=== PATIENT | female | born 1945 | race Caucasian/White ===

== ENCOUNTER 2020-04-04 07:44 | Inpatient (IN) | payer MEDICARE, SELFPAY ==
[2020-04-04] VITALS (31 sets, daily range): BP systolic 107–138; BP diastolic 72–88; PULSE 99–109; RESP 10–20; TEMP 36.4–36.9; O2SAT 97–100; BMI 26.5
--- NOTE | ~2020-04-04 | MR_ITS ---
EXAMINATION: MR brain/brain stem wo/w con DATE: 04/05/2020 18:50 INDICATION: Parkinson's disease. Altered mental status. Old infarcts. TECHNIQUE: Magnetic resonance imaging (MRI) of the brain and brainstem was performed without and with 14 mL Multihance intravenous contrast. Sequences included sagittal and axial T1-weighted SE, axial d iffusion-weighted FS SE, axial T2*-weighted GRE, axial T2-weighted FLAIR, and axial T2-weighted FSE. Postcontrast axial and coronal T1-weighted SE was obtained. Apparent diffusion coefficient (ADC) maps were created. COMPARISON: Head CT dated 04/04/2020 and brain MR dated 10/13/2019 FINDINGS: There are no areas of restricted diffusion to suggest acute infarction. No intracranial hemorrhage or abnormal intracranial mass lesion. There are scattered areas of nonspecific increased T2-weighted si gnal intensity in the cerebral white matter, predominantly involving the deep and periventricular whi te matter. There are no intraparenchymal signal abnormalities seen on the other pulse sequences. Symm etric prominence of the sulci and ventricles consistent with moderate age-appropriate diffuse cerebra l volume loss. There are no abnormal extra-axial fluid collections. Flow voids are seen in the cerebr al arteries on the T2-weighted sequences consistent with their expected patency. Changes of bilateral intraocular lens replacement. Visualized orbits and soft tissues are unremarkable. There are no area s of abnormal enhancement on the post contrast images although evaluation on the postcontrast images is limited by moderate amount of motion artifact. IMPRESSION: 1. No acute intracranial process. 2. Chronic age-related findings including moderate diffuse volume loss and moderate periventricular p redominant nonspecific white matter T2 hyperintensity consistent with chronic small vessel ischemic d isease. Reviewed, dictated and finalized at location A. IMPRESSION: 1. No acute intracranial process. 2. Chronic age-related findings including moderate diffuse volume loss and mode rate periventricular predominant nonspecific white matter T2 hyperintensity con sistent with chronic small vessel ischemic disease.
--- NOTE | ~2020-04-04 | XR_ITS ---
XR chest 1V DATE: 04/04/2020 08:33 INDICATION: Fever TECHNIQUE: AP chest on 04/04/2020 at 0830 hours COMPARISON: 11/10/2019 portable AP chest at 1959 hours FINDINGS: Right Port-A-Cath catheter tip overlies the upper right atrium. No evidence of pneumothorax . Normal heart size. No pulmonary infiltrate or consolidation, pleural effusion or pulmonary vascular c ongestion or pneumothorax. Surgical clips, right upper quadrant, consistent with cholecystectomy. Diffuse osteopenia. There is degenerative spurring of the thoracic and lumbar spine. IMPRESSION: No active cardiopulmonary disease Reviewed, dictated and finalized at location A.
--- NOTE | ~2020-04-04 | CT_ITS ---
EXAMINATION: CT brain wo con DATE: 04/04/2020 08:25 INDICATION: Altered mental status. TECHNIQUE: Computed tomography (CT) of the head was performed without intravenous contrast. The mA wa s adjusted according to patient size. Iterative reconstruction technique was employed. The dose-lengt h product was 605.33 mGy-cm. COMPARISON: Head CT 11/06/2019 FINDINGS: There are old infarcts involving the right thalamus and right frontal lobe. There are scatt ered areas of low attenuation in the cerebral white matter. There is no intracranial hemorrhage, acut e infarction, or abnormal intracranial mass lesion. The ventricles are normal in size. There is mild mucosal thickening in the ethmoid sinuses. The mastoid air cells are normal. There are likely changes of ocular lens replacement surgeries. IMPRESSION: 1. Old infarcts involving the right thalamus and right frontal lobe. 2. Stable moderate nonspecific cerebral white matter disease, which likely represents chronic small v essel ischemic disease. Reviewed, dictated and finalized at location A. IMPRESSION: 1. Old infarcts involving the right thalamus and right frontal lobe. 2. Stable moderate nonspecific cerebral white matter disease, which likely repr esents chronic small vessel ischemic disease.
--- NOTE | 2020-04-04 07:56 | ED.AMS ---
HPI - Altered Mental Status General Chief Complaint: Altered Mental Status Stated Complaint: Altered mental status Time Seen by Provider: 04/04/20 07:48 History of Present Illness HPI narrative: BIBEMS from [facility] for fever and AMS. They report that she has had poor appetitie and been more lethargic for at least the past week. Poor Po intake. Related Data Home Medications Medication Instructions Recorded Confirmed carbidopa-levodopa 1 tablet PO TID 10/20/19 04/04/20 divalproex 250 mg PO BID 10/20/19 04/04/20 fludrocortisone 0.1 mg PO EVERY OTHER DAY 10/20/19 04/04/20 megestrol 40 mg PO BID 10/20/19 04/04/20 potassium chloride 20 meq PO BID 10/20/19 04/04/20 Caltrate 600 plus D 1 tablet PO DAILY 11/07/19 04/04/20 Vitamin 1 tablet PO DAILY 11/07/19 04/04/20 allopurinol 300 mg PO BID 11/07/19 04/04/20 aspirin [Adult Low Dose Aspirin] 81 mg PO DAILY 11/07/19 04/04/20 cyanocobalamin (vitamin B-12) 1,000 mcg PO USEASDIRECTD 11/07/19 04/04/20 [Vitamin B-12] docusate sodium [Colace] 100 mg PO QAM PRN 11/07/19 04/04/20 melatonin 5 mg PO HS PRN 11/07/19 04/04/20 cyanocobalamin (vitamin B-12) 500 mcg PO DAILY 04/04/20 04/04/20 furosemide [Lasix] 20 mg PO EVERY OTHER DAY 04/04/20 04/04/20 furosemide [Lasix] 40 mg PO EVERY OTHER DAY 04/04/20 04/04/20 iron ps [id number] acid 1 cap PO BID 04/04/20 04/04/20 [Poly-Iron 150 Forte] loperamide [Imodium A-D] 2 mg PO Q4H PRN 04/04/20 04/04/20 ondansetron HCl [Zofran] 4 mg PO Q6H PRN 04/04/20 04/04/20 sertraline [Zoloft] 25 mg PO BID 04/04/20 04/04/20 spironolactone 25 mg PO DAILY 04/04/20 04/04/20 Allergies Allergy/AdvReac Type Severity Reaction Status Date / Time bacitracin Allergy Unknown Unknown Verified 04/04/20 07:49 nitrofurantoin Allergy Unknown Rash Verified 04/04/20 07:49 Penicillins Allergy Unknown Rash Verified 04/04/20 07:49 polymyxin B Allergy Unknown Unknown Verified 04/04/20 07:49 povidone-iodine Allergy Unknown ITCHING Verified 04/04/20 07:49 soap Allergy Unknown ITCHING Verified 04/04/20 07:49 Sulfa (Sulfonamide Allergy Unknown Rash Verified 04/04/20 07:49 Antibiotics) Review of Systems Review of Systems: ROS unobtainable: Yes unobtainable due to mental status PMFSH Past Medical History Medical History Chronic kidney disease, stage 3 CVA (cerebrovascular accident) Old CVA noted on CT 04/04/20 Major depression Parkinson's disease Urinary tract infection Surgical History Surgical History No significant past surgical history Family History Family History Father Acute myocardial infarction History of blood clots Chronic obstructive pulmonary disease Diabetes mellitus Social History Social History Social History: Ms. Winters resides at [facility]. Her 's name is Teodoro. Smoking status: Never smoker Second hand tobacco smoke exposure: Yes Alcohol intake: never Substance use: never Substance use type: does not use Gender identity (if verbalized by the patient): Female Spiritual care concerns: No Agree to blood products: Yes Exam Const: General: no acute distress Other: Lethargic HENMT: Mouth: Yes dry mucous membranes Eyes: Pupils: Equal, round and reactive pupils present Resp: Effort & Inspection: normal respiratory effort Auscultation: clear to auscultation bilaterally Cardio: Rate: regular rate Rhythm: regular rhythm GI: GI Palp: Yes Soft to palpation and No Tenderness to palpation present (GI) Skin: General skin exam: normal color Neuro: General: moves all extremities, no focal motor deficits and CN's II-XI intact bilaterally Speech: normal speech Other: oriented x1. answers simple questions appropriately. Following basic commands Extrem: Gen
--- NOTE | 2020-04-04 08:02 | ECG_ITS ---
Measurements Intervals Hydro Rate: 106 P: 66 RI: 145 QRS: -41 QRSD: 100 T: 57 QT: 335 QTc: 445 Interpretive Statements SINUS TACHYCARDIA POOR R WAVE PROGRESSION, ANTERIOR LEADS INFERIOR INFARCT, AGE INDETERMINATE BORDERLINE ST-T WAVE ABNORMALITY- HIGH LATERAL LEADS BASELINE ARTIFACT- I, II, III, AVR, AVL, AVF ABNORMAL ECG Electronically Signed On 04-04-2020 8:37:02 CDT by Milan Goldstein D.O.
[2020-04-04 08:24] LABS: Basophils Percent Auto 0.3 % (0.2-1.2); Eosinophils Absolute Auto 0.1 K/mm3 (0-0.3); Hematocrit 39.7 % (37.0-47.0); Immature Granulocyte Absolute 0.09 K/mm3 (0.00-0.031); Lymphocytes Percent Auto 16.7 % (18.3-44.2); Mean Corpuscular HGB Conc 32.7 g/dl (32-36); Mean Corpuscular Hemoglobin 36.4 pg (26-34); Mean Corpuscular Volume 111.2 fl (80-100); Mean Platelet Volume 11.1 fl (7.4-10.4); Monocytes Absolute Auto 0.9 K/mm3 (0.1-0.6); Monocytes Percent Auto 10.2 % (2.6-8.5); Neutrophils Absolute Auto 6.4 K/mm3 (1.3-6.7); Neutrophils Percent Auto 70.8 % (45.5-73.1); Platelet Count Result 149 k/mm3 (150-375); Red Blood Count 3.57 M/mm3 (4.2-5.4); Red Cell Distribution Width 14.9 % (11.5-14.5)
[2020-04-04 08:36] LABS: Lactic Acid Reflex 1.1 mmol/L (0.7-2.1)
[2020-04-04 08:38] LABS: Alanine Aminotransferase 30 U/L (4-35); Albumin Level 3.8 g/dL (3.5-5.1); Alkaline Phosphatase 88 U/L (38-126); Aspartate Amino Transferase 40 U/L (14-36); Bilirubin,Total 0.8 mg/dL (0.2-1.3); Blood Urea Nitrogen 37 mg/dL (7-17); CRP < 0.5 mg/dL (<1.0); Calcium 9.7 mg/dL (8.4-10.2); Carbon Dioxide 22 mmol/L (22-30); Chloride 109 mmol/L (98-107); Estimated CRCL calculation 29 ml/min; Estimated Glomerular Filt Rate 34; Glucose 87 mg/dL (65-105); Sodium 138 mmol/L (137-145)
[2020-04-04] MEDS: SODIUM CHLORIDE 0.9% IV 1,000 ML 999 ML IV CONT (08:51)
[2020-04-04 09:02] LABS: INR 1.1; Prothrombin Time 13.4 Seconds (11.1-14.7)
[2020-04-04 09:04] LABS: Partial Thromboplastin Time 22.5 SECONDS (22.3-36.8)
[2020-04-04 09:29] LABS: Add Urine Microscopic? YES; Appearance Urine Turbid (Clear); Bacteria Urine 4+ /hpf; Bilirubin Urine Negative (Negative); Blood Urine 1+ (Negative); Color Urine Yellow (Yellow); Glucose Urine UA Negative (Negative); Ketones Urine Trace mg/dL (Negative); Leukocyte Esterase Ur 2+ LEU/UL (Negative); Mucus Urine Few /lpf; Nitrate Urine Positive (Negative); Protein Urine 3+ mg/dL (Negative); RBC Urine 51-75 /hpf (0-2); Specific Grav Ur 1.013 (1.001-1.035); Urobilinogen Urine Negative mg/dL (<2.0); WBC Urine >75 /hpf
--- NOTE | 2020-04-04 12:31 | ADMGEN ---
This patient, Yany Winters, was admitted to [facility] Surg Room 326-01. Patient/family oriented to hospital policies and general routines including ID bracelet, bed and alarms, visiting hours, pain management, procedures, bathroom and other care routines, personal items, smoking policy, room service/diet, and visiting hours. Valuables list has been completed. Information on how to activate the Rapid Response Team has been discussed. Patient/Family are encouraged to report perceived risks to care and to ask questions if they do not understand what they are told or what they should do.
[2020-04-04] MEDS: LACTATED RINGERS 1,000 ML 125 ML IV CONT (14:48)
--- NOTE | 2020-04-04 15:28 | PM.IMHP ---
H&P: HPI History of Present Illness Chief complaint: Altered mental status Narrative: Date of service 04/04/20 1500 The supervising physician for this history and physical is Dr. Radhika Poon. Ms. Winters is a 74 yo F with history of Parkinson's who presented to the ED [facility] for evaluation of altered mental status and poor oral intake. Much of this history is obtained from the EMR as the patient is not answering most questions. It is noted that she has had a decline in her mental status over the last 2 weeks, and was not moving or eating yesterday. At time of my encounter, she is minimally verbal and not able to answer most of my questions. CT brain shows evidence of old right-sided infarcts without acute intracranial abnormality. Chest x-ray shows no active cardiopulmonary disease. Routine labs show elevated BUN and Cr. Urinalysis is grossly abnormal and has been sent for urine culture. Blood cultures were obtained. She was started on empiric ceftriaxone. She is being admitted for acute UTI with altered mental status. Review of Systems Review of Systems: ROS unobtainable: Yes unobtainable due to mental status PMFSH Past Medical History Medical History (Updated 04/04/20 @ 15:54 by Lyssa Ridley PA-C) Chronic kidney disease, stage 3 CVA (cerebrovascular accident) Old CVA noted on CT 04/04/20 Major depression Parkinson's disease Urinary tract infection Surgical History Surgical History No significant past surgical history Social History Social History (Updated 04/04/20 @ 16:01 by Lyssa Ridley PA-C) Social History: Ms. Winters resides at [facility]. Her 's name is Teodoro. Smoking status: Never smoker Second hand tobacco smoke exposure: Yes Alcohol intake: never Substance use: never Substance use type: does not use Gender identity (if verbalized by the patient): Female Spiritual care concerns: No Agree to blood products: Yes Meds Home Medications and Allergies Home Medications Medication Instructions Recorded Confirmed Type carbidopa-levodopa 1 tablet PO TID 10/20/19 04/04/20 History divalproex 250 mg PO BID 10/20/19 04/04/20 History fludrocortisone 0.1 mg PO EVERY OTHER DAY 10/20/19 04/04/20 History megestrol 40 mg PO BID 10/20/19 04/04/20 History potassium chloride 20 meq PO BID 10/20/19 04/04/20 History Caltrate 600 plus D 1 tablet PO DAILY 11/07/19 04/04/20 History Vitamin 1 tablet PO DAILY 11/07/19 04/04/20 History allopurinol 300 mg PO BID 11/07/19 04/04/20 History aspirin [Adult Low Dose Aspirin] 81 mg PO DAILY 11/07/19 04/04/20 History cyanocobalamin (vitamin B-12) 1,000 mcg PO USEASDIRECTD 11/07/19 04/04/20 History [Vitamin B-12] docusate sodium [Colace] 100 mg PO QAM PRN 11/07/19 04/04/20 History melatonin 5 mg PO HS PRN 11/07/19 04/04/20 History acetaminophen [Mapap 650 mg PO Q4H PRN #0 tablet 11/21/19 04/04/20 Rx (acetaminophen)] memantine [Namenda] 5 mg PO Q12HR #0 tablet 11/21/19 04/04/20 Rx cyanocobalamin (vitamin B-12) 500 mcg PO DAILY 04/04/20 04/04/20 History furosemide [Lasix] 20 mg PO EVERY OTHER DAY 04/04/20 04/04/20 History furosemide [Lasix] 40 mg PO EVERY OTHER DAY 04/04/20 04/04/20 History iron ps [id number] acid 1 cap PO BID 04/04/20 04/04/20 History [Poly-Iron 150 Forte] loperamide [Imodium A-D] 2 mg PO Q4H PRN 04/04/20 04/04/20 History ondansetron HCl [Zofran] 4 mg PO Q6H PRN 04/04/20 04/04/20 History sertraline [Zoloft] 25 mg PO BID 04/04/20 04/04/20 History spironolactone 25 mg PO DAILY 04/04/20 04/04/20 History Allergies Allergy/AdvReac Type Severity Reaction Status Date / Time bacitracin Allergy Unknown Unknown Verified 04/04/20 07:49 nitrofurantoin Allergy Unknown Rash Verified 04/04/20 07:49 Penicillins Allergy Unknown Rash Verified 04/04/20 07:49 polymyxin B Allergy Unknown Unknown Verified 04/04/20 07:49 povidone-iodine Allergy Unknown ITCHING Verif
[2020-04-04 16:56] LABS: Ammonia < 9 umol/L (9-30)
[2020-04-04] MEDS: CARBIDOPA/LEVODOPA 25/100 MG TABLET 1 TABLET PO (17:47)
[2020-04-04] MEDS: DIVALPROEX SODIUM 250 MG TABEC PO (17:47)
[2020-04-04] MEDS: allopurinoL 300 MG TABLET PO (17:47)
[2020-04-04] MEDS: MEGESTROL ACETATE (*CHEMO) 40 MG TABLET PO (17:47)
[2020-04-04 17:48] LABS: Valproic Acid 21.1 ug/mL (50-120)
[2020-04-04] MEDS: SERTRALINE HCL 25 MG TABLET PO (17:48)
--- NOTE | 2020-04-04 18:59 | PC.NURSE ---
medication given crushed and in pudding. had to prompt patient multiple times to swallow medication. patient able to drink without difficulty noted. patient did not appear to pocket medication at this time. Fed patient dinner, patient taking approx 25%. head of bed up 45 degrees, lots of prompting. patient keeping food in mouth, not swallowing without multiple prompts and liquids.
[2020-04-04] MEDS: MEMANTINE 5 MG TABLET PO (21:30)
[2020-04-04] MEDS: CENTRAL LINE FLUSH 10 ML IV PUSH (21:40)
[2020-04-05] MEDS: LACTATED RINGERS 1,000 ML 100 ML IV CONT ×3 (00:52→22:18)
[2020-04-05 06:00] VITALS: BP 113/73; PULSE 99; RESP 20; TEMP 36.4; O2SAT 96
[2020-04-05 06:21] LABS: Basophils Percent Auto 0.6 % (0.2-1.2); Eosinophils Absolute Auto 0.1 K/mm3 (0-0.3); Eosinophils Percent Auto 1.2 % (0-4.4); Hematocrit 34.9 % (37.0-47.0); Hemoglobin 11.3 g/dL (12.0-15.0); Immature Granulocyte Absolute 0.09 K/mm3 (0.00-0.031); Immature Granulocyte Percent A 1.2 % (0-0.5); Lymphocytes Absolute Auto 1.09 K/mm3 (0.9-3.2); Lymphocytes Percent Auto 15.1 % (18.3-44.2); Mean Corpuscular HGB Conc 32.4 g/dl (32-36); Mean Corpuscular Hemoglobin 35.9 pg (26-34); Mean Corpuscular Volume 110.8 fl (80-100); Mean Platelet Volume 11.1 fl (7.4-10.4); Monocytes Absolute Auto 0.8 K/mm3 (0.1-0.6); Monocytes Percent Auto 10.5 % (2.6-8.5); Neutrophils Absolute Auto 5.2 K/mm3 (1.3-6.7); Neutrophils Percent Auto 71.4 % (45.5-73.1); Nucleated Red Blood Cells Perc 0.3 % (0.0-0.2); Platelet Count Result 118 k/mm3 (150-375); Red Blood Count 3.15 M/mm3 (4.2-5.4); Red Cell Distribution Width 14.7 % (11.5-14.5); White Blood Count 7.2 K/mm3 (4.5-10.0)
[2020-04-05 06:28] LABS: Blood Urea Nitrogen 30 mg/dL (7-17); Calcium 9.2 mg/dL (8.4-10.2); Carbon Dioxide 24 mmol/L (22-30); Chloride 109 mmol/L (98-107); Estimated CRCL calculation 33 ml/min; Estimated Glomerular Filt Rate 40; Glucose 72 mg/dL (65-105); Lipase 49 U/L (23-300); Magnesium 1.8 mg/dL (1.6-2.3); Potassium 3.8 mmol/L (3.4-5.0); Sodium 138 mmol/L (137-145)
[2020-04-05] MEDS: CENTRAL LINE FLUSH 10 ML IV PUSH ×3 (06:41→21:45)
[2020-04-05 08:55] VITALS: BMI 11.0
[2020-04-05 08:58] VITALS: BMI 11.0
[2020-04-05] MEDS: allopurinoL 300 MG TABLET PO ×2 (10:08→17:40)
[2020-04-05] MEDS: CARBIDOPA/LEVODOPA 25/100 MG TABLET 1 TABLET PO ×3 (10:08→17:40)
[2020-04-05] MEDS: MEMANTINE 5 MG TABLET PO ×2 (10:08→20:08)
[2020-04-05] MEDS: ASPIRIN 81 MG ENTERIC TABLET PO (10:08)
[2020-04-05] MEDS: SERTRALINE HCL 25 MG TABLET PO ×2 (10:08→17:41)
[2020-04-05] MEDS: SPIRONOLACTONE 25 MG TABLET PO (10:09)
[2020-04-05] MEDS: DIVALPROEX SODIUM 250 MG TABEC PO ×2 (10:09→17:40)
[2020-04-05] MEDS: MEGESTROL ACETATE (*CHEMO) 40 MG TABLET PO ×2 (10:09→17:40)
[2020-04-05] MEDS: FUROSEMIDE 20 MG TABLET PO (10:39)
[2020-04-05 14:00] VITALS: BP 110/69; PULSE 97; RESP 16; TEMP 36.1; O2SAT 94
--- NOTE | 2020-04-05 14:50 | PM.IMPN ---
Progress Note: A&P Assessment and Plan (1) Altered mental status: Qualifiers: Altered mental status type: unspecified Qualified Code(s): R41.82 - Altered mental status, unspecified Code(s): R41.82 - Altered mental status, unspecified Status: Acute Assessment and Plan: Patient with Parkinson's presents from [facility] with reported mental decline over the last 2 weeks; may be associated with acute UTI vs. Progressing Parkinson's vs. both. CT brain shows old right-sided infarct without acute intracranial abnormality. Will order MRI brain today, obtain ABG. Urinalysis is grossly abnormal. Continue treatment for acute UTI with urine culture pending. Neurology consulted -appreciate further recommendations. (2) Parkinson's disease: Code(s): G20 - Parkinson's disease Status: Acute Assessment and Plan: Continue her home medications including Sinemet. Per the notes from the [facility] she has been on a pureed diet and seeing PT/OT/ST. ST bedside adonis noted no s/s of aspiration with pureed diet with thin liquids. Edit: Detailed discussion held with patient's , Teodoro, over the phone regarding her condition and goals for further plan of care. He is agreeable to speaking with hospice. She is eating very little and Teodoro notes she has had very minimal oral intake over the last 2 weeks. (3) Urinary tract infection: Qualifiers: Hematuria presence: with hematuria Urinary tract infection type: site unspecified Qualified Code(s): N39.0 - Urinary tract infection, site not specified; R31.9 - Hematuria, unspecified Code(s): N39.0 - Urinary tract infection, site not specified Status: Acute Assessment and Plan: Urinalysis grossly abnormal. Urine culture growing gram negative bacilli; blood cultures pending with no growth to date. Continue IV Rocephin (#3). (4) Dehydration: Code(s): E86.0 - Dehydration Status: Acute Assessment and Plan: Poor oral intake over the last 2 weeks per the patient's . Continue on IV fluids for now and monitor renal function. (5) Chronic kidney disease, stage 3: Code(s): N18.3 - Chronic kidney disease, stage 3 (moderate) Status: Acute Assessment and Plan: Cr near her baseline. Continue IV fluids for now and monitor renal function. Subjective Date/time seen: 04/05/20 14:50 Interval history: Ms. Winters is a 74yo F with Parkinson's admitted for declining mental status and UTI. Patient wakes an opens her eyes to verbal stimuli; answers yes or no at times to some questions, other questions she does not answer. Review of Systems Review of Systems: ROS unobtainable: Yes unobtainable due to medical condition Exam Narrative: Exam Narrative: General: Chronically ill appearing female resting comfortably in bed in no acute distress. HEENT: Normocephalic, atraumatic, EOMI, PERRLA, oral mucosa tacky. Neck: Supple, no meningeal signs. Chest: Lungs clear to auscultation anteriorly and laterally. Respirations are even and nonlabored. Tolerating room air. Heart: Heart rate and rhythm regular. Abdomen: Soft, nontender, nondistended, bowel sounds present. Skin: Warm, dry. Extremities: Peripheral pulses intact and idea to right upper extremity at previous IV site. Not able spontaneously move her extremities. Neurologic: Wakes to verbal stimuli, answers minimal yes/no questions and most questions she does not answer. She does have her eyes open and tracks me as I walk around the bed. Nursing notes she was more awake earlier and took her medications, had some pureed diet. Psychiatric: Flat. Objective Data Vital Signs Vital Signs: Vital Signs - 24 hr 04/04/20 21:42 04/05/20 06:00 04/05/20 14:00 Temperature 98.2 F 97.5 F L 97.0
[2020-04-05 15:41] LABS: Base Excess ABG 0.3 mEq/l (+/-2.0); Carboxyhemoglobin 0.3 % THb (0-2.0); Fractional Inspired Oxygen 21 %; HCO3 ABG 23.2 mEq/l (22.0-26.0); Methemoglobin ABG 0.3 %THb (0-1.5); Oxygen Content ABG 16.5 %vol (16.0-22.0); Oxygen Saturation ABG 96.6 % (95.0-100.0); Oxyhemoglobin 95.1 % THb (90.0-100.0); PO2 ABG 79.4 mmHg (80.0-100.0); PO2 FiO2 Ratio Arterial Blood 3.78 %; Reduced Hemoglobin 4.3 %THb (0-5.0); Total Hemoglobin 12.3 g/dL (12.0-18.0); pH ABG 7.478 (7.350-7.450)
[2020-04-05 15:42] LABS: Device ROOM AIR; Modified Allen's Test Pass; Site Drawn RIGHT RADIAL
--- NOTE | 2020-04-05 16:46 | WPDNEURCNPN ---
Assessment and Plan Assessment and plan (1) Altered mental status: Qualifiers: Altered mental status type: unspecified Qualified Code(s): R41.82 - Altered mental status, unspecified Code(s): R41.82 - Altered mental status, unspecified Status: Acute (2) Chronic kidney disease, stage 3: Code(s): N18.3 - Chronic kidney disease, stage 3 (moderate) Status: Acute (3) Urinary tract infection: Qualifiers: Hematuria presence: with hematuria Urinary tract infection type: site unspecified Qualified Code(s): N39.0 - Urinary tract infection, site not specified; R31.9 - Hematuria, unspecified Code(s): N39.0 - Urinary tract infection, site not specified Status: Acute (4) Hyperglycemia: Code(s): R73.9 - Hyperglycemia, unspecified Status: Acute (5) Dementia: Code(s): F03.90 - Unspecified dementia without behavioral disturbance Status: Acute (6) Major depression: Code(s): F32.9 - Major depressive disorder, single episode, unspecified Status: Acute (7) Parkinson's disease: Code(s): G20 - Parkinson's disease Status: Acute (8) Generalized weakness: Code(s): R53.1 - Weakness Status: Acute (9) Dehydration: Code(s): E86.0 - Dehydration Status: Acute Additional Plan she will continue the present medical management and the MRI shows any evidence of stroke which can happen in a person who has been sedentary at a retirement will do accordingly Consult date: 04/05/20 Time Seen: 16:30 HPI: Yany Winters is a 74 year old female is admitted because of change in the mental status is found to have UTI as she has underlying Parkinson's disease and comes from the retirement she has not slow monotonous speech and takes about 32nd to respond to question otherwise she denies any headache nausea vomiting chest pain shortness of breath her tremors left more than right-sided quite obvious and she does have symmetrical face along with generalized weakness however no lateralizing weakness She does not seem to be any distress and trying to remember me because we have seen her with the she was in the acute rehab in November of this year Review of Systems Review of Systems: All systems reviewed & are unremarkable except as noted in HPI and below PMFSH Past Medical History Medical History Chronic kidney disease, stage 3 CVA (cerebrovascular accident) Old CVA noted on CT 04/04/20 Major depression Parkinson's disease Urinary tract infection Surgical History Surgical History No significant past surgical history Family History Family History Father Acute myocardial infarction History of blood clots Chronic obstructive pulmonary disease Diabetes mellitus Social History Social History Social History: Ms. Winters resides at [facility]. Her 's name is Teodoro. Smoking status: Never smoker Second hand tobacco smoke exposure: Yes Alcohol intake: never Substance use: never Substance use type: does not use Gender identity (if verbalized by the patient): Female Spiritual care concerns: No Agree to blood products: Yes Meds Home Medications and Allergies Home Medications Medication Instructions Recorded Confirmed Type carbidopa-levodopa 1 tablet PO TID 10/20/19 04/04/20 History divalproex 250 mg PO BID 10/20/19 04/04/20 History fludrocortisone 0.1 mg PO EVERY OTHER DAY 10/20/19 04/04/20 History megestrol 40 mg PO BID 10/20/19 04/04/20 History potassium chloride 20 meq PO BID 10/20/19 04/04/20 History Caltrate 600 plus D 1 tablet PO DAILY 11/07/19 04/04/20 History Vitamin 1 tablet PO DAILY 11/07/19 04/04/20 History allopurinol 300 mg PO BID 11/07/19 04/04/20 History aspirin [Ad
[2020-04-05 22:00] VITALS: BP 128/81; PULSE 92; RESP 18; TEMP 36.8; O2SAT 100
[2020-04-06] MEDS: CENTRAL LINE FLUSH 10 ML IV PUSH (05:31)
[2020-04-06 06:00] VITALS: BP 120/67; PULSE 95; RESP 16; TEMP 36.9; O2SAT 100
[2020-04-06] MEDS: DIVALPROEX SODIUM 250 MG TABEC PO (08:43)
[2020-04-06] MEDS: SPIRONOLACTONE 25 MG TABLET PO (08:43)
[2020-04-06] MEDS: MEGESTROL ACETATE (*CHEMO) 40 MG TABLET PO (08:44)
[2020-04-06] MEDS: CARBIDOPA/LEVODOPA 25/100 MG TABLET 1 TABLET PO ×2 (08:44→12:58)
[2020-04-06] MEDS: SERTRALINE HCL 25 MG TABLET PO (08:44)
[2020-04-06] MEDS: allopurinoL 300 MG TABLET PO (08:44)
[2020-04-06] MEDS: ASPIRIN 81 MG ENTERIC TABLET PO (08:44)
[2020-04-06] MEDS: FUROSEMIDE 20 MG TABLET PO (08:44)
[2020-04-06] MEDS: MEMANTINE 5 MG TABLET PO (08:44)
--- NOTE | 2020-04-06 13:09 | PM.IMPN ---
Subjective Date/time seen: 04/06/20 1245 Objective Data Vital Signs Vital Signs: Vital Signs - 24 hr 04/05/20 14:00 04/05/20 22:00 04/06/20 06:00 Temperature 97.0 F L 98.3 F 98.4 F Pulse Rate 97 92 95 Respiratory Rate 16 18 16 Blood Pressure 110/69 128/81 120/67 Pulse Oximetry 94 100 100 Intake/Output Intake/Output: Intake & Output 04/03/20 04/04/20 04/05/20 04/06/20 23:59 23:59 23:59 23:59 Intake Total 1170 3710 1050 Output Total 100 Balance 1070 3710 1050 Meds/Results Medications: Active Medications Generic Name Dose Route Start Last Admin Trade Name Freq PRN Reason Stop Dose Admin Acetaminophen 650 mg 04/04/20 15:57 Tylenol Tablet PO Q4H PRN Pain or Fever Allopurinol 300 mg 04/04/20 17:00 04/06/20 08:44 Zyloprim PO 300 mg BID MARYANA Administration Aspirin 81 mg 04/05/20 09:00 04/06/20 08:44 Aspirin Ec PO 81 mg DAILY MARYANA Administration Carbidopa/Levodopa 1 tablet 04/04/20 17:00 04/06/20 12:58 Sinemet 25/100 Mg PO 1 tablet TID MARYANA Administration Divalproex Sodium 250 mg 04/04/20 17:00 04/06/20 08:43 Depakote Ec Tab PO 250 mg BID MARYANA Administration Furosemide 20 mg 04/05/20 09:00 04/06/20 08:44 Lasix Tablet PO 20 mg DAILY MARYANA Administration Heparin Sodium (Beef Lung) 50 units 04/05/20 09:00 04/06/20 08:44 Heparin Flush 50 Units/5 Ml IV PUSH Not Given QAM MARYANA Heparin Sodium (Beef Lung) 50 units 04/04/20 14:06 Heparin Flush 50 Units/5 Ml IV PUSH PRN PRN after intermittent infusion Heparin Sodium (Beef Lung) 50 units 04/04/20 14:06 Heparin Flush 50 Units/5 Ml IV PUSH PRN PRN after blood draws Heparin Sodium (Porcine) 500 units 04/04/20 14:06 Heparin Sod Flush 100 Units/Ml IV PUSH PRN PRN see comments below Ceftriaxone Sodium/Dextrose 1 gm in 50 mls @ 100 mls/hr 04/05/20 09:00 04/06/20 08:49 Rocephin 1 Gm/D5w 50 Ml IVPB 100 mls/hr Q24H MARYANA Administration Lactated Ringer's 1,000 mls @ 100 mls/hr 04/04/20 11:35 04/06/20 08:59 Lr - Lactated Ringers Iv IV CONT Infused .Q10H MARYANA Infusion Megestrol Acetate 40 mg 04/04/20 17:00 04/06/20 08:44 Megace PO 40 mg BID MARYANA Administration Memantine 5 mg 04/04/20 21:00 04/06/20 08:44 Namenda PO 5 mg Q12HR MARYANA Administration Non-Formulary Medication 1 cap 04/04/20 17:00 Iron Ps [id number] Acid [Poly-Iron 150 Forte] PO 05/04/20 17:01 BID MARYANA Ondansetron HCl 4 mg 04/04/20 15:57 Zofran Inj IV PUSH Q4H PRN Nausea And Vomiting Sertraline HCl 25 mg 04/04/20 17:00 04/06/20 08:44 Zoloft PO 25 mg BID MARYANA Administration Sodium Chloride 10 ml 04/04/20 22:00 04/06/20 05:31 Central Line Flush IV PUSH 10 ml Q8HR MARYANA Administration Spironolactone 25 mg 04/05/20 09:00 04/06/20 08:43 Aldactone PO 25 mg DAILY MARYANA Administration Radiology Results: ITS Impressions Head CT 04/04/20 08:31 IMPRESSION: 1. Old infarcts involving the right thalamus and right frontal lobe. 2. Stable moderate nonspecific cerebral white matter disease, which likely represents chronic small vessel ischemic disease. Chest X-Ray 04/04/20 08:34 IMPRESSION: No active cardiopulmonary disease Brain MRI 04/05/20 19:30 IMPRESSION: 1. No acute intracranial process. 2. Chronic age-related findings including moderate diffuse volume loss and moderate periventricular predominant nonspecific white matter T2 hyperintensity consistent with chronic small vessel ischemic disease. Labs Labs: Laboratory Results - last 24 hr 04/05/20 15:03 Puncture Site Right radial ABG pH 7.478 H ABG pCO2 32.0 L ABG pO2 79.4 L ABG PO2/FiO2 Ratio 3.78 ABG HCO3 23.2 ABG O2 Saturation 96.6 ABG O2 Content 16.5 ABG Base Excess 0.3 A-a Gradient 32.0 Oxyhemoglobin 95.1 Carboxyhemoglobin 0.3 Methemoglobin 0.3 Reduced Hemoglobin 4.3 Total
[2020-04-06 13:39] LABS: SARS-CoV-2 RNA PCR Negative
--- NOTE | 2020-04-06 14:29 | PM.DS ---
DS: Admitting Diagnosis Admitting Diagnosis Admitting Diagnosis: Altered mental status, unspecified DS: Discharge Diagnosis Discharge Diagnosis (1) Altered mental status: Qualifiers: Altered mental status type: unspecified Qualified Code(s): R41.82 - Altered mental status, unspecified Code(s): R41.82 - Altered mental status, unspecified Status: Acute Assessment and Plan: Date of Service 04/06/20 Ms. Winters is a 74 yo F with Parkinson's chronic kidney disease who presented to the ED from [facility] for evaluation of mental decline over the last 2 weeks. Her , Teodoro, noted that staff had been describing her is less responsive, less communicated of over the last 2 weeks and was not eating or drinking much any more. 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 She was found have a urinary tract infection was treated with 3 days of IV Rocephin which resulted in no real change in her mentation. She was lethargic, would wake to answer some yes/no questions and some short phrases, but most questions she would not verbally answer. She had been on a pureed diet at the senior living which was continued here but she would only take a few bites. She was evaluated by Neurology. Ultimately, it was felt that her worsening mental status is a result of her progressing Parkinson's disease. Detailed discussions were held with her , Teodoro, regarding goals for further plan of care. Teodoro agreed to speak [facility]. COVID testing was performed for discharge screening back to the nursing was negative she was discharged back to [facility] 04/06/20. Consultations: -- Neurology - Dr Dominguez Patient with Parkinson's presents from senior living with reported mental decline over the last 2 weeks; may be associated with acute UTI vs. Progressing Parkinson's vs. both. No improvement after 3 days of IV antibiotics for the UTI - recommend planning for end of life care. 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 ABG grossly unremarkable (2) Parkinson's disease: Code(s): G20 - Parkinson's disease Status: Acute Assessment and Plan: Maintained on her home medications including Sinemet and namenda. Per the notes from the senior living she has been on a pureed diet and seeing PT/OT/ST. ST bedside eval noted no s/s of aspiration with pureed diet with thin liquids. (3) Urinary tract infection: Qualifiers: Hematuria presence: with hematuria Urinary tract infection type: site unspecified Qualified Code(s): N39.0 - Urinary tract infection, site not specified; R31.9 - Hematuria, unspecified Code(s): N39.0 - Urinary tract infection, site not specified Status: Acute Assessment and Plan: Urinalysis grossly abnormal. Urine culture grew Klebsiella; blood cultures pending with no growth to date day of discharge. Continue IV Rocephin (#3). (4) Dehydration: Code(s): E86.0 - Dehydration Status: Acute Assessment and Plan: Poor oral intake over the last 2 weeks per the patient's . Continue on IV fluids for now and monitor renal function. (5) Chronic kidney disease, stage 3: Code(s): N18.3 - Chronic kidney disease, stage 3 (moderate) Status: Acute Assessment and Plan: Cr near her baseline. Continue IV fluids for now and monitor renal function. DS: Summary Time Spent with Patient Time attestation: Total time spent providing and/or coordinating discharge services: 35 minutes Exam Narrative: Exam Narrative: Last Vital Signs Temp 98.4 F 04/06/20 06:00 Pulse
--- NOTE | 2020-04-06 15:04 | PC.NURSE ---
called report to telly BUNCH @ [facility], all questions answered.
== END 2020-04-06 15:40 | disposition hospice, home (50) | DRG 690 ==
LOC: ANHED 11:35 → ANH3MEDSUR 11:57
PROVIDERS: Physician Assistant; Admitting Provider Internal Medicine; Emergency Provider Emergency Medicine; PCP Family Medicine; Visit Provider Hospitalist
DX: N39.0 Urinary tract infection, site not specified (principal); B96.1 Klebsiella pneumoniae [K. pneumoniae] as the cause of diseases classified elsewhere; F03.90 Unspecified dementia, unspecified severity, without behavioral disturbance, psychotic disturbance, mood disturbance, and anxiety; G20 Parkinson's disease; Z11.59 Encounter for screening for other viral diseases; R31.0 Gross hematuria; E86.0 Dehydration; N18.3 Chronic kidney disease, stage 3 (moderate); F32.9 Major depressive disorder, single episode, unspecified; Z86.73 Personal history of transient ischemic attack (TIA), and cerebral infarction without residual deficits; Z79.82 Long term (current) use of aspirin
CPT/HCPCS: 36415; 36600; 51701; 70450; 70553; 71045; 80048; 80053; 80164; 81001; 82140; 82375; 82805; 83050; 83605; 83690; 83735; 84100; 84443; 85025; 85610; 85730; 86140; 87040; 87077; 87086; 87088; 87186; 87635; 92610; 93005; 96361; 96365; 97110; 97162; 97165; 99285; A9270; A9577; C9803; J0696; J7030; J7120; U0003